=== PATIENT | male | born 2000 | race Caucasian/White ===

== ENCOUNTER 2021-02-07 22:34 | Emergency (ER) | payer OTHER, SELFPAY ==
[2021-02-07 22:41] VITALS: BP 153/76; PULSE 65; RESP 16; TEMP 36.3; O2SAT 98
--- NOTE | 2021-02-07 23:00 | DI.RAD_ITS ---
Exam(s) XR FOREARM LT XR HUMERUS LT EXAM: XR HUMERUS LT CLINICAL HISTORY: new wrist drop/weakness TECHNIQUE: COMPARISON: CR,XR XR FOREARM LT from 02/07/2021 CR,XR XR FOREARM LT from 02/07/2021 FINDINGS: Three views of the humerus and two views of the forearm were obtained. No bony or soft tissue abnorm ality seen. IMPRESSION: RADIATION DOSE DELIVERED: Total DLP
--- NOTE | 2021-02-07 23:06 | ED.GENADUL_ITS ---
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 Please follow-up with physical therapy as well as with neurology. Our care management team will assist you in getting an appointment with the neurology clinic. Wear brace while awake and out of bed. The brace may be removed at bedtime and for showering. As we discussed, I believe you will benefit from a brief course of prednisone. Please take as directed. 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 Sunday morning he noticed left wrist drop and numbness overlying his thumb. He had difficulty with the upper body motion of running due to the wrist drop. No headache, no neck or back pain. Denies recalling any fall or injury. He is an otherwise healthy male. Patient has noted blood pressure 123/76, otherwise normal vital signs. His exam is primarily notable for left wrist drop and numbness in the distribution of the radial nerve. Fairly classic presentation of Sunday palsy. Patient referred for x-ray to rule out underlying bony injury or cystic mass. Placed in left soft wrist extension brace. Referred to neurology for follow-up as well as physical therapy. Discussed with him that supportive care is primary management, I do feel he will benefit from a brief burst of steroids, with little downside. He is stable for discharge from the emergency department. HPI General Mode of arrival: ambulatory . Date/Time Provider Initiated Documentation: 02/07/21 22:38 . Limitations to Documentation: no limitations . Information obtained by: patient . History of Present Illness 20 year old M presents to the emergency department with the chief complaint of Left wrist drop since night/Sunday morning, described as moderate, Quality is described as constant, and is localized to the left and upper extremity. Patient reports no radiation. Patient started experiencing this day(s) and it has been constant. No relieving factors improve symptom(s), No exacerbating factors reported . Patient notes weakness; denies rash. Patient did receive the following treatments prior to arrival, none Related Data Home Medications Medication Instructions Recorded Confirmed prednisone 50 mg PO DAILY 5 Days #5 tab 02/07/21 Previous Rx's Medication Instructions Recorded prednisone 50 mg PO DAILY 5 Days #5 tab 02/07/21 Allergies Allergy/AdvReac Type Severity Reaction Status Date / Time bee venom protein (honey bee) Allergy Unverified 02/07/21 22:45 General Stated Complaint: Orthopedic PRIETO: 4 Review of Systems Narrative: Denies other injury, no fall, no neck or back pain. 6 systems reviewed and otherwise negative [facility] Social History Smoking/Tobacco Use Status: Never Smoking risk assessment performed?: Yes Alcohol Intake: current Alcohol Intake frequency: a few times a month Alcohol type: beer and hard liquor Drug use: Occasionally Substance use type: marijuana Do you feel safe at home: Yes Do you feel safe in your relationship?: Yes Exam Narrative Exam Narrative: GEN: awake, alert, oriented 3. Pleasant, well groomed, interactive. HEAD: Normocephalic, atraumatic EYES: PERRL, EOMI NECK: Full ROM, no LEANNA, no menigismus CHEST/RESP: Nontender, clear to auscultation bilateral, no wheeze/rhonchi/rales CARDIOVASCULAR: RRR, no murmur, rub bouchra. 2+ Rad pulse bilateral EXT: Left wrist drop present. Decreased sensation overlying the radial/dorsal aspect of left thumb. Decreased no edema, no rash, weakness of intrinsic hand muscles left. 2+ radial pulse bilaterally. Normal extension and flexion of the elbow. Neuro: Grossly normal neurologic exam, conversant, interactive. Psych: Speech fluent, thoughts congruent, affect normal Course Vital Signs Vital signs: Vital Signs Temperature 36.3 C L 02/07/21 22:41 Pulse 65 02/07/21 22:41 Respiratory Rate 16 02/07/21 22:41 Blood Pressure 153/76 H 02/07/21 22:41 Pulse Oximetry 98 02/07/21 22:41 Temperature 36.3 C L 02/07/21 22:41 Temperature Source Skin 02/07/21 22:41 Pulse 65 02/07/21 22:41 Respiratory Rate 16 11/01/21 22:41 Respiratory Effort Non-Labored 02/07/21 22:46 Blood Pressure 153/76 H 02/07/21 22:41 Blood Pressure Position Sitting 02/07/21 22:41 Pulse Oximetry 98 02/07/21 22:41 Oxygen Delivery Method Room Air 02/07/21 22:41 Oxygen Flow Rate 0 02/07/21 22:41 Pain Level 0 02/07/21 22:41
--- NOTE | 2021-02-07 23:19 | NUR.NOTE ---
i faxed the follow up to neurology Nursing Note:
[2021-02-07] MEDS: predniSONE 20 MG TAB 60 MG PO (23:28)
--- NOTE | 2021-02-08 00:20 | DI.VRAD_ITS ---
PROCEDURE INFORMATION: Exam: XR Left Forearm Exam date and time: 02/07/2021 11:05 PM Age: 20 years old Clinical indication: Arm, lower; Left; Patient HX: New weakness/wrist drop TECHNIQUE: Imaging protocol: XR Left forearm. Views: 2 views. COMPARISON: No relevant prior studies available. FINDINGS: Bones/joints: Normal. Soft tissues: Normal. IMPRESSION: No acute findings. Dictated and Authenticated by: Guy Quezada MD. Ordering:ADEEL Nieto MD
--- NOTE | 2021-02-08 00:21 | DI.VRAD_ITS ---
PROCEDURE INFORMATION: Exam: XR Left Humerus Exam date and time: 02/07/2021 11:05 PM Age: 20 years old Clinical indication: Arm, upper; Left; Patient HX: New wrist drop/weakness TECHNIQUE: Imaging protocol: XR Left humerus. Views: 2 or more views. COMPARISON: No relevant prior studies available. FINDINGS: Bones/joints: Normal. Soft tissues: Normal. IMPRESSION: No acute findings. Dictated and Authenticated by: Guy Quezada MD. Ordering:ADEEL Nieto MD
== END 2021-02-07 23:51 | disposition home or self-care (01) ==
PROVIDERS: Emergency Provider Emergency Medicine
DX: G56.32 Lesion of radial nerve, left upper limb (principal)
CPT/HCPCS: 29125; 99284; 73060; 73090; 99283; J7512

== ENCOUNTER 2021-08-12 23:58 | Outpatient (REF) | payer OTHER, SELFPAY ==
[2021-08-13 12:13] LABS: COVID-19 RT-PCR UVMMC Result Negative (Negative)
== END 2021-08-12 23:59 | disposition home or self-care (01) ==
LOC: LBN 23:58
PROVIDERS: Visit Provider Physician Assistant Medical
DX: J02.9 Acute pharyngitis, unspecified (principal); Z20.822 Contact with and (suspected) exposure to COVID-19
CPT/HCPCS: U0003; 87070